=== PATIENT | male | born 1955 | race Caucasian/White ===

== ENCOUNTER → 2017-03-08 | Outpatient (CLI) | payer OTHER ==
[2017-03-08 13:05] LABS: ESTIMATED AVERAGE GLUCOSE 137 mg/dl; HA1C FLAG Normal (Normal)
[2017-03-08 13:45] LABS: ALT/SGPT 32 U/L (12-78); AST/SGOT 17 U/L (15-37); BLOOD UREA NITROGEN 22 mg/dl (7-18); CARBON DIOXIDE 26 mmol/L (21-32); CHLORIDE 104 mmol/L (98-107); CHOLESTEROL 165 mg/dl (0-200); GLUCOSE 124 mg/dl (70-99); POTASSIUM 4.5 mmol/L (3.5-5.1); SODIUM 140 mmol/L (136-145); TRIGLYCERIDES 410 mg/dl (0-150); URIC ACID 7.1 mg/dl (2.6-7.2)
[2017-03-08 13:48] LABS: HDL CHOLESTEROL 33 mg/dl
[2017-03-08 13:49] LABS: CALCIUM 9.6 mg/dl (8.5-10.1)
== END | disposition home or self-care (01) ==
LOC: C.LABMFLN 10:32
PROVIDERS: ATTEND Family Medicine
DX: E78.5 Hyperlipidemia, unspecified (principal); I10 Essential (primary) hypertension; M10.9 Gout, unspecified; R73.03 Prediabetes

== ENCOUNTER → 2017-10-19 | Outpatient (CLI) | payer OTHER ==
[2017-10-19 18:23] LABS: ALT/SGPT 37 U/L (12-78); BLOOD UREA NITROGEN 27 mg/dl (7-18); CALCIUM 9.8 mg/dl (8.5-10.1); CARBON DIOXIDE 26 mmol/L (21-32); CHOLESTEROL 145 mg/dl (0-200); CREATININE 1.55 mg/dl (0.60-1.40); GLUCOSE 116 mg/dl (70-99); POTASSIUM 4.7 mmol/L (3.5-5.1); SODIUM 136 mmol/L (136-145)
[2017-10-19 18:27] LABS: ALKALINE PHOSPHATASE 49 U/L (45-117); AST/SGOT 24 U/L (15-37); LDL CHOLESTEROL CALCULATED 42 mg/dl; TOTAL PROTEIN 7.4 gm/dl (6.4-8.2)
[2017-10-20 07:57] LABS: HEMOGLOBIN A1C 7.2 % (4.5-5.6)
== END | disposition home or self-care (01) ==
LOC: C.LABMFLN 11:07
PROVIDERS: ATTEND Family Medicine
DX: Z12.5 Encounter for screening for malignant neoplasm of prostate (principal); E78.5 Hyperlipidemia, unspecified; I10 Essential (primary) hypertension; R73.03 Prediabetes

== ENCOUNTER → 2018-02-26 | Outpatient (CLI) | payer OTHER ==
[2018-02-26 13:34] LABS: HEMOGLOBIN A1C 6.7 % (4.5-5.6)
[2018-02-26 14:13] LABS: ALBUMIN 3.7 gm/dl (3.4-5.0); ALT/SGPT 33 U/L (12-78); AST/SGOT 22 U/L (15-37); BLOOD UREA NITROGEN 30 mg/dl (7-18); CALCIUM 8.8 mg/dl (8.5-10.1); CARBON DIOXIDE 26 mmol/L (21-32); CHOLESTEROL 131 mg/dl (0-200); CREATININE 1.79 mg/dl (0.60-1.40); GLUCOSE 123 mg/dl (70-99); POTASSIUM 4.2 mmol/L (3.5-5.1); SODIUM 137 mmol/L (136-145); URIC ACID 4.5 mg/dl (2.6-7.2)
[2018-02-26 14:15] LABS: ALKALINE PHOSPHATASE 42 U/L (45-117); TOTAL PROTEIN 7.3 gm/dl (6.4-8.2)
== END | disposition home or self-care (01) ==
LOC: C.LABMFLN 08:14
PROVIDERS: ATTEND Family Medicine
DX: E78.5 Hyperlipidemia, unspecified (principal); I10 Essential (primary) hypertension; M10.9 Gout, unspecified; R73.03 Prediabetes